=== PATIENT | female | born 1970 | race Caucasian/White ===

== ENCOUNTER 2016-11-20 14:15 | Emergency (ER) | payer BC, OTHER ==
[~2016-11-20] VITALS: Ht 162.6 cm; Wt 92.9 kg
[~2016-11-20 14:15] MED LIST: BCPILLS PO; CIPR-255 PO; MTR600X PO; PHEN37.585 PO
[2016-11-20 14:16] VITALS: TEMP 36.6; Ht 162.6 cm; Wt 92.9 kg
[2016-11-20] MEDS ORDERED: SODIUM CHLORIDE 0.9% 1000ML 1,000 ML IV STA (14:32)
[2016-11-20] MEDS ORDERED: CETI10TA84 PO (14:40)
[2016-11-20] MEDS ORDERED: FLUT0.15 NAE (14:40)
--- NOTE | 2016-11-20 14:44 | EMERGENCY ROOM VISIT NOTE ---
History Report prepared by Cherelle: Guevara Olivier Under the Supervision of: Dr. Daxa Lau M.D. First contact with patient: 14:23 Chief Complaint: CHEST PAIN Stated Complaint: CHEST PAIN History of Present Illness The patient is a 46 year old female who presents to the Emergency Room with complaints of resolved chest pain beginning a few hours prior to arrival. She described her discomfort as "crushing" and currently rates her discomfort as a 2 /10 in severity. The patient states she was at work and felt like she was having an anxiety attack with chest pain. She notes she sat down and tried to breathe through the episode that lasted 30-40 minutes, but the chest pain radiated into her abdomen. The patient states her arrived and gave the patient a Lorazepam, which helped to relieve her symptoms. She denies chest pain radiating down her arm, shortness of breath, lightheadedness, and chance of . The patient notes a history of kidney and gallbladder stones. She states she is a non-smoker and drinks 1-2 alcoholic drinks a day. The patient notes she was on anxiety medication last year, but she has been off of it for 7- 8 months. 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 The patient notes she ate a ham and cheese sandwich and chicken corn soup for lunch. She states her father had a heart attack at the age of 39. 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 A total of 10 systems reviewed and were otherwise negative. Past Medical & Surgical Medical Problems: (1) Asthma (2) Gallbladder calculus (3) Kidney stone (4) Menorrhagia Surgical Problems: (1) H/O tubal ligation (2) History of endometrial ablation Family History Heart disease Kidney disease Kidney stones Social History Smoking Status: Never Smoker Alcohol Use: other (1-2 drinks per day) Marital Status: Housing Status: lives with family Occupation Status: employed Current/Historical Medications Scheduled Cetirizine (Zyrtec), 10 MG PO DAILY Fluticasone Propionate (Nasal) (Flonase Allergy Relief), 2 SPRAY HUNTER DAILY Allergies Coded Allergies: Fluticasone (Unverified Allergy, Intermediate, MIGRAINE, 11/20/16) Milk Protein Extract (Unverified Allergy, Intermediate, MIGRAINE, 11/20/16) Salmeterol (Unverified Allergy, Intermediate, MIGRAINE, 11/20/16) Hydrocodone (Verified Adverse Reaction, Intermediate, MADE PT CRY AND VOMIT, 11/22/14) Physical Exam Vital Signs Date Time Temp Pulse Resp B/P Pulse Ox O2 Delivery O2 Flow Rate FiO2 11/20/16 18:22 98 15 133/80 98 Room Air 11/20/16 17:35 106 143/90 99 Room Air 11/20/16 16:27 109 16 133/78 96 Room Air 11/20/16 14:55 99 Room Air 11/20/16 14:50 99 20 161/98 99 Room Air 11/20/16 14:29 103 11/20/16 14:16 36.6 100 18 153/84 98 Room Air Physical Exam Vital signs reviewed. General: Well-appearing female, in no significant distress, anxious, tearful. HEENT: No scleral icterus, PERRLA, neck supple. Atraumatic. Cardiovascular: Regular rate and rhythm, no extra sounds. Pulmonary: Clear to auscultation bilaterally, normal work of breathing. Abdomen: Soft, nontender, nondistended, positive bowel sounds. Musculoskeletal: Atraumatic, no peripheral edema. Neurologic: Patient awake alert and oriented x 3, full strength in all 4 extremities. Cranial nerves 2 through 12 grossly intact. Skin: Warm, dry, no rash Medical Decision & Procedures ER Provider Diagnostic Interpretation: Radiology results as stated below per my review and radiologist interpretation: CHEST ONE VIEW PORTABLE CLINICAL HISTORY: Chest pain. COMPARISON STUDY: No previous studies for comparison. FINDINGS: Lung volumes are normal. Lungs are clear. There is no pneumothorax or pleural effusion. Pulmonary vascularity is normal. Cardiomediastinal silhouette is normal. IMPRESSION: No acute cardiopulmonary findings. Electronically signed by: Cam Alvares M.D. 11/20/2016 2:50 PM ABDOMINAL ULTRASOUND, RIGHT UPPER QUADRANT HISTORY: Cholelithiasis. Chest pain.. COMPARISON: CT of the abdomen and pelvis November 22, 2014. FINDINGS: Liver is sonographically normal. There is no biliary ductal dilatation. There are multiple gallstones within the gallbladder. There is no gallbladder wall thickening or pericholecystic fluid. No sonographic Genao sign was elicited. The pancreatic body is normal. The head and tail are partially obscured. There is no right hydronephrosis. IMPRESSION: 1. Cholelithiasis. No sonographic evidence of acute cholecystitis. 2. No biliary ductal dilatation. 3. Partially obscured pancreas. Electronically signed by: Cam Alvares M.D. 11/20/2016 3:41 PM CHEST CTA for PULMONARY ARTERIES CT DOSE: 464.50 mGy.cm HISTORY: Chest pain dyspnea TECHNIQUE: Multiaxial CT images of the chest were performed following the intravenous administration of contrast to evaluate the pulmonary arteries. Maximal intensity projection images were also obtained. COMPARISON STUDY: None. FINDINGS: There is a normal caliber thoracic aorta with no evidence for dissection. There is no evidence for pulmonary embolus. No pleural effusions. No pneumothorax. The liver and spleen are unremarkable. No mediastinal or hilar lymphadenopathy. The central airways are patent. The lungs are clear. 3 mm nodular density superior aspect right upper lobe transaxial image 90. Pleural-based density posterior right lower lobe transaxial image 62 measuring 6 mm. 5 mm pleural-based density posterior aspect right lower lobe transaxial image 47. Subtle interstitial change at both lung bases. IMPRESSION: 1. No evidence for pulmonary embolus. 2. No focal infiltrate. 3. Several low suspicion nodular densities right hemithorax with a six-month follow-up recommended. 4. Subtle bibasilar interstitial prominence considered nonspecific Electronically signed by: Dariel Mondragon M.D. 11/20/2016 5:43 PM Laboratory Results 11/20/16 14:25 Red Blood Count 4.82, Mean Corpuscular Volume 90.2, Mean Corpuscular Hemoglobin 30.1, Mean Corpuscular Hemoglobin Concent 33.3, Mean Platelet Volume 9.9, Neutrophils (%) (Auto) 75.4, Lymphocytes (%) (Auto) 18.9, Monocytes (%) (Auto) 4.0, Eosinophils (%) (Auto) 1.1, Basophils (%) (Auto) 0.3, Neutrophils # (Auto) 9.00, Lymphocytes # (Auto) 2.26, Monocytes # (Auto) 0.48, Eosinophils # (Auto) 0.13, Basophils # (Auto) 0.04 11/20/16 14:25 Test 11/20/16 14:25 11/20/16 14:55 11/20/16 16:26 White Blood Count 11.94 K/uL (4.8-10.8) Red Blood Count 4.82 M/uL (4.2-5.4) Hemoglobin 14.5 g/dL (12.0-16.0) Hematocrit 43.5 % (37-47) Mean Corpuscular Volume 90.2 fL (80-100) Mean Corpuscular Hemoglobin 30.1 pg (25-34) Mean Corpuscular Hemoglobin Concent 33.3 g/dl (32-36) Platelet Count 305 K/uL (130-400) Mean Platelet Volume 9.9 fL (7.4-10.4) Neutrophils (%) (Auto) 75.4 % Lymphocytes (%) (Auto) 18.9 % Monocytes (%) (Auto) 4.0 % Eosinophils (%) (Auto) 1.1 % Basophils (%) (Auto) 0.3 % Neutrophils # (Auto) 9.00 K/uL (1.4-6.5) Lymphocytes # (Auto) 2.26 K/uL (1.2-3.4) Monocytes # (Auto) 0.48 K/uL (0.11-0.59) Eosinophils # (Auto) 0.13 K/uL (0-0.5) Basophils # (Auto) 0.04 K/uL (0-0.2) RDW Standard Deviation 45.2 fL (36.4-46.3) RDW Coefficient of Variation 13.6 % (11.5-14.5) Immature Granulocyte % (Auto) 0.3 % Immature Granulocyte # (Auto) 0.03 K/uL (0.00-0.02) Anion Gap 9.0 mmol/L (3-11) Est Creatinine Clear Calc Drug Dose 91.3 ml/min Estimated GFR () 94.6 Estimated GFR (Non- 81.6 BUN/Creatinine Ratio 11.7 (10-20) Calcium Level 8.6 mg/dl (8.5-10.1) Total Bilirubin 0.4 mg/dl (0.2-1) Direct Bilirubin 0.1 mg/dl (0-0.2) Aspartate Amino Transf (AST/SGOT) 75 U/L (15-37) Alanine Aminotransferase (ALT/SGPT) 44 U/L (12-78) Alkaline Phosphatase 95 U/L (45-117) Total Creatine Kinase 82 U/L (26-192) Creatine Kinase MB < 0.5 ng/ml (0.5-3.6) Creatine Kinase MB Ratio (0-3.0) Total Protein 7.2 gm/dl (6.4-8.2) Albumin 3.7 gm/dl (3.4-5.0) Lipase 111 U/L (73-393) Urine Color YELLOW Urine Appearance CLEAR (CLEAR) Urine pH 6.0 (4.5-7.5) Urine Specific [place] 1.019 (1.000-1.030) Urine Protein NEG (NEG) Urine Glucose (UA) NEG (NEG) Urine Ketones NEG (NEG) Urine Occult Blood NEG (NEG) Urine Nitrite NEG (NEG) Urine Bilirubin NEG (NEG) Urine Urobilinogen NEG (NEG) Urine Leukocyte Esterase NEG (NEG) Bedside D-Dimer > 450 ng/mlFEU (0-450) Bedside Troponin I 0.000 ng/ml (0-0.045) Laboratory results per my review. Medications Administered Medications (Trade) Dose Ordered Sig/Sofia Route Start Time Stop Time Status Last Admin Dose Admin Sodium Chloride (Nss 1000ml) 1,000 ml @ 125 mls/hr Q8H STAT IV 11/20/16 14:32 11/20/16 19:04 DC 11/20/16 14:52 125 MLS/HR ECG Indication: chest pain Rate (beats per minute): 107 Rhythm: sinus tachycardia Findings: nonspecific-ST abn (Inferior and Lateral), no ectopy ED Course 1428: Past medical records reviewed. The patient was evaluated in room C2B. A complete history and physical examination was performed. 1432: Ordered Sodium Chloride 1,000 ml @ 125 mls/hr IV. 1818: Upon reevaluation, the patient appeared to have improvement of her symptoms. I discussed findings with her. She verbalized agreement of the treatment plan. The patient was discharged home. Medical Decision Differential Diagnoses: Acute coronary syndrome, pulmonary embolus, aortic dissection, musculoskeletal pain, pneumonia, pleural effusion, pneumothorax This patient was evaluated and appeared to be significantly anxious. IV access was obtained and laboratory work was drawn. EKG was negative for acute ischemia. Chest x-ray is negative. Laboratory work reveals negative cardiac enzymes 2, d-dimer is elevated. CT scan of the chest was performed and reveals several pulmonary nodules. The patient was feeling improved after IV hydration. Her anxiety did improve. She was informed of the findings on CAT scan, she stated she had been through some workup in the past. She will follow- up with primary care physician for repeat chest x-ray in 6-12 months. Patient will seek follow-up regarding her chest discomfort. The patient was discharged to the care of her and will return to the ER for worsening of symptoms or any medical concerns. Impression Primary Impression: Substernal chest pain Scribe Attestation The scribe's documentation has been prepared under my direction and personally reviewed by me in its entirety. I confirm that the note above accurately reflects all work, treatment, procedures, and medical decision making performed by me. Departure Information Dispostion Home / Self-Care Referrals No Doctor, Assigned (PCP) Forms HOME CARE DOCUMENTATION FORM, IMPORTANT VISIT INFORMATION Patient Instructions My [facility] Additional Instructions Diagnosis: Chest pain Please follow-up with your primary care physician this week. Continue medications as prescribed. Follow-up for a repeat chest x-ray in 6-12 months for pulmonary nodules.. Return to the ER for worsening of symptoms or any medical concerns.
[2016-11-20 14:48] LABS: BASO % 0.3 %; BASO ABS # 0.04 K/uL (0-0.2); COMPLETE YES; EOS % 1.1 %; HEMATOCRIT 43.5 % (37-47); IG% 0.3 %; LYMPH % 18.9 %; LYMPH ABS # 2.26 K/uL (1.2-3.4); MEAN CELL VOLUME 90.2 fL (80-100); MEAN CORPUSCULAR HEMOGLOBIN 30.1 pg (25-34); MEAN CORPUSCULAR HGB CONC 33.3 g/dl (32-36); MEAN PLATELET VOLUME 9.9 fL (7.4-10.4); NEUT % 75.4 %; PLATELET COUNT 305 K/uL (130-400); RED BLOOD COUNT 4.82 M/uL (4.2-5.4); WHITE BLOOD COUNT 11.94 K/uL (4.8-10.8)
--- NOTE | 2016-11-20 14:52 | DIAGNOSTIC IMAGING REPORT ---
CHEST ONE VIEW PORTABLE CLINICAL HISTORY: Chest pain. COMPARISON STUDY: No previous studies for comparison. FINDINGS: Lung volumes are normal. Lungs are clear. There is no pneumothorax or pleural effusion. Pulmonary vascularity is normal. Cardiomediastinal silhouette is normal. IMPRESSION: No acute cardiopulmonary findings. Electronically signed by: Cam Alvares M.D. 11/20/2016 2:50 PM Dictated Date/Time: 11/20/2016 2:50 PM
[2016-11-20 15:01] LABS: ALT/SGPT 44 U/L (12-78); AST/SGOT 75 U/L (15-37); BLOOD UREA NITROGEN 10 mg/dl (7-18); BUN/CREATININE RATIO 11.7 (10-20); CALCIUM 8.6 mg/dl (8.5-10.1); CARBON DIOXIDE 26 mmol/L (21-32); CHLORIDE 106 mmol/L (98-107); CREATININE 0.86 mg/dl (0.60-1.20); GLUCOSE 115 mg/dl (70-99); POTASSIUM 3.3 mmol/L (3.5-5.1); SODIUM 141 mmol/L (136-145)
[2016-11-20 15:06] LABS: ALKALINE PHOSPHATASE 95 U/L (45-117)
[2016-11-20 15:25] LABS: URINE APPEARANCE CLEAR (CLEAR); URINE BILIRUBIN NEG (NEG); URINE COLOR YELLOW; URINE NITRITE NEG (NEG); URINE SPECIFIC GRAVITY 1.019 (1.000-1.030); UROBILINOGEN NEG (NEG); ZZUR CULT IF INDIC CLEAN CATCH NO
[2016-11-20 15:31] LABS: MANUAL MICROSCOPIC REQUIRED? NO; REVIEW REQ? NO
--- NOTE | 2016-11-20 15:43 | DIAGNOSTIC IMAGING REPORT ---
ABDOMINAL ULTRASOUND, RIGHT UPPER QUADRANT HISTORY: Cholelithiasis. Chest pain.. COMPARISON: CT of the abdomen and pelvis November 22, 2014. FINDINGS: Liver is sonographically normal. There is no biliary ductal dilatation. There are multiple gallstones within the gallbladder. There is no gallbladder wall thickening or pericholecystic fluid. No sonographic Genao sign was elicited. The pancreatic body is normal. The head and tail are partially obscured. There is no right hydronephrosis. IMPRESSION: 1. Cholelithiasis. No sonographic evidence of acute cholecystitis. 2. No biliary ductal dilatation. 3. Partially obscured pancreas. Electronically signed by: Cam Alvares M.D. 11/20/2016 3:41 PM Dictated Date/Time: 11/20/2016 3:40 PM
[2016-11-20] MEDS ORDERED: OPTIRAY 320 IV PRN (17:15)
--- NOTE | 2016-11-20 17:44 | DIAGNOSTIC IMAGING REPORT ---
CHEST CTA for PULMONARY ARTERIES CT DOSE: 464.50 mGy.cm HISTORY: Chest pain dyspnea TECHNIQUE: Multiaxial CT images of the chest were performed following the intravenous administration of contrast to evaluate the pulmonary arteries. Maximal intensity projection images were also obtained. COMPARISON STUDY: None. FINDINGS: There is a normal caliber thoracic aorta with no evidence for dissection. There is no evidence for pulmonary embolus. No pleural effusions. No pneumothorax. The liver and spleen are unremarkable. No mediastinal or hilar lymphadenopathy. The central airways are patent. The lungs are clear. 3 mm nodular density superior aspect right upper lobe transaxial image 90. Pleural-based density posterior right lower lobe transaxial image 62 measuring 6 mm. 5 mm pleural-based density posterior aspect right lower lobe transaxial image 47. Subtle interstitial change at both lung bases. IMPRESSION: 1. No evidence for pulmonary embolus. 2. No focal infiltrate. 3. Several low suspicion nodular densities right hemithorax with a six-month follow-up recommended. 4. Subtle bibasilar interstitial prominence considered nonspecific Electronically signed by: Dariel Mondragon M.D. 11/20/2016 5:43 PM Dictated Date/Time: 11/20/2016 5:40 PM
[2016-11-20 18:22] VITALS: BP 133/80; PULSE 98; O2SAT 98
== END 2016-11-20 18:28 | disposition home or self-care (01) ==
LOC: C.EDB 14:16 → C.EDC 18:28
DX: R07.2 Precordial pain (principal); Z82.49 Family history of ischemic heart disease and other diseases of the circulatory system; K80.20 Calculus of gallbladder without cholecystitis without obstruction

== ENCOUNTER → 2017-05-08 | Outpatient (CLI) | payer BC, OTHER ==
[~2017-05-08] MED LIST changes: -BCPILLS PO; +CETI10TA84 PO; -CIPR-255 PO; +FLUT0.15 NAE; -MTR600X PO; -PHEN37.585 PO
== END | disposition home or self-care (01) ==
LOC: C.PAPS 09:56
PROVIDERS: ATTEND Obstetrics & Gynecology
DX: Z01.419 Encounter for gynecological examination (general) (routine) without abnormal findings (principal)

== ENCOUNTER → 2017-06-06 | Outpatient (CLI) | payer BC, OTHER ==
--- NOTE | 2017-06-08 08:14 | MAMMOGRAPHY REPORT ---
BILATERAL DIGITAL SCREENING MAMMOGRAM TOMOSYNTHESIS WITH CAD: 06/06/2017 CLINICAL HISTORY: Routine screening. Patient has no complaints. TECHNIQUE: Breast tomosynthesis in addition to standard 2D mammography was performed. Current study was also evaluated with a Computer Aided Detection (CAD) system. COMPARISON: Comparison is made to exams dated: 06/05/2016 mammogram, 06/03/2015 mammogram, 4 mammogram, 04/03/2013 mammogram, 04/05/2012 ultrasound, and 04/05/2012 mammogram - [facility]. BREAST COMPOSITION: There are scattered areas of fibroglandular density in both breasts. FINDINGS: The parenchymal pattern is unchanged. No developing mass, architectural distortion or clus ter of suspicious microcalcifications is seen in either breast. IMPRESSION: ACR BI-RADS CATEGORY 2: BENIGN There is no mammographic evidence of malignancy. A 1 year screening mammogram is recommended. The pa tient will receive written notification of the results. Approximately 10% of breast cancers are not detected with mammography. A negative mammographic report should not delay biopsy if a clinically suggestive mass is present. Beba Alfaro M.D. ay/:06/06/2017 16:23:38 [employer]: Merly SON(Sindhu)(Mirella), [facility] letter sent: Normal 1/2 BI-RADS Code: ACR BI-RADS Category 2: Benign
== END | disposition home or self-care (01) ==
LOC: C.MAMM 15:59
PROVIDERS: ATTEND Obstetrics & Gynecology
DX: Z12.31 Encounter for screening mammogram for malignant neoplasm of breast (principal)